=== PATIENT | female | born 1965 | race Caucasian/White ===

== ENCOUNTER 2019-05-31 08:00 | Inpatient (IN) | payer BC ==
--- NOTE | 2019-05-31 07:59 | HP ---
Admitting History and Physical - Admission Chief Complaint: left knee osteoarthritis x years History of Present Illness: 53 year old female presents in regard to their left knee. Long-standing history of left knee osteoarthritis. Patient complains of pain, limited range of motion , difficulty ambulating, and difficulty with activities of daily living. Patient has failed conservative treatment options including PO medications, activity modification, injections, and exercise programs. At this point, patient like to proceed with surgical intervention, left total knee arthroplasty MAKOplasty. History Source: Patient - Past Medical History ...LMP: 02/28/18 ...: No Heme/Onc: Yes: Anemia Endocrine: Yes: Hypothyroidism - Past Surgical History Additional Past Surgical History: See written history & physical. - Smoking History Smoking history: Current every day smoker Have you smoked in the past 12 months: No Aproximately how many cigarettes per day: 3 - Alcohol/Substance Use Hx Alcohol Use: Yes (FEW TIMES PER WEEK) Home Medications - Allergies Allergies/Adverse Reactions: Allergies Allergy/AdvReac Type Severity Reaction Status Date / Time No Known Allergies Allergy Verified 05/08/19 10:14 - Home Medications Home Medications: Ambulatory Orders Cholecalciferol (Vitamin D3) [Vitamin D3] 2,000 unit PO DAILY 05/08/19 Ferrous Sulfate 325 mg PO DAILY 05/08/19 Levothyroxine [Synthroid -] 25 mcg PO DAILY 05/08/19 Review of Systems - Review of Systems Musculoskeletal: reports: Crepitus (left knee), Decreased ROM (left knee), Joint Pain (left knee), Joint Swelling (left knee) Physical Examination Constitutional: Yes: Well Nourished Eyes: Yes: Conjunctiva Clear HENT: Yes: Atraumatic Neck: Yes: Supple Cardiovascular: Yes: Regular Rate and Rhythm Respiratory: Yes: Regular Gastrointestinal: Yes: Soft ...Rectal Exam: Yes: Deferred Musculoskeletal: Yes: Joint Stiffness (left knee), Joint Swelling (left knee) Assessment/Plan 53 year old female presents in regard to their left knee. Long-standing history of left knee osteoarthritis. Patient complains of pain, limited range of motion , difficulty ambulating, and difficulty with activities of daily living. Patient has failed conservative treatment options including PO medications, activity modification, injections, and exercise programs. At this point, patient like to proceed with surgical intervention, left total knee arthroplasty MAKOplasty. Pros, cons, risks, benefits, and alternatives of a left total knee arthroplasty MAKOplasty were discussed with the patient at length. Patient confirms their understanding and consents to proceed with a left total knee arthroplasty MAKOplasty.
[~2019-05-31 08:00] MED LIST: CEFAZOLIN 3 GM in DEXTROSE 5%-WATER - 100 ML IVPB ONE; CELECOXIB 200 MG CAPSULE PO ONE; PANTOPRAZOLE 40 MG TABLET PO ONE; TRANEXAMIC ACID 1000 MG/10 ML VIAL IVPUSH ONE; oxyCODONE HCL 10 MG SUSTAINED ACTING TABLET PO ONE
[2019-05-31] MEDS ORDERED: BUPIVACAINE HCL/PF 0.5% (5MG/ML) 10 ML VIAL ONE (10:01)
[2019-05-31] MEDS ORDERED: SODIUM CHLORIDE 0.9% P/F 10 ML VIAL IJ ONE (10:02)
[2019-05-31] MEDS ORDERED: BUPIVACAINE LIPOSOME/PF (EXPAREL) 266 MG/20 ML VIAL ONE (10:02)
[2019-05-31] MEDS ORDERED: MIDAZOLAM HCL 2 MG/2 ML SINGLE DOSE VIAL ONE (10:02)
[2019-05-31] MEDS ORDERED: ceFAZolin SODIUM 1 GM VIAL ONE (10:03)
[2019-05-31] MEDS ORDERED: PROPOFOL 20 ML ONE ×7 (10:04→13:54)
[2019-05-31] MEDS ORDERED: oxyCODONE HCL 5 MG TABLET PO PRN (10:15)
[2019-05-31] MEDS ORDERED: LACTATED RINGERS SOLUTION 1,000 ML IV SCH ×2 (10:15→15:15)
[2019-05-31] MEDS ORDERED: ONDANSETRON 4 MG/2 ML VIAL IVPUSH PRN ×2 (10:15→15:10)
[2019-05-31 10:16] VITALS: BMI 38.0
[2019-05-31] MEDS ORDERED: DEXAMETHASONE SOD PHOSPHATE 4 MG/1 ML VIAL ONE (11:58)
[2019-05-31] MEDS ORDERED: KETOROLAC TROMETHAMINE 30 MG/1 ML VIAL ONE (11:58)
[2019-05-31] MEDS ORDERED: ONDANSETRON 4 MG/2 ML VIAL ONE (11:58)
[2019-05-31] MEDS ORDERED: VANCOMYCIN 1,000 MG VIAL (RESTRICTED TO ID ONLY) IVPB ONE (14:15)
[2019-05-31] MEDS ORDERED: TRANEXAMIC ACID 1000 MG/10 ML VIAL IVPUSH ONE (14:30)
[2019-05-31] MEDS ORDERED: ACETAMINOPHEN 1000 MG/100 ML VIAL (NON FORMULARY) IVPB ONE (15:07)
[2019-05-31] MEDS: traMADol HCL 50 MG TABLET PO SCH ×2 (15:10→20:44)
[2019-05-31] MEDS ORDERED: MAG HYDROX/AL HYDROX/SIMETH 30 ML UNIT-DOSE CUP PO PRN (15:10)
[2019-05-31] MEDS ORDERED: MAGNESIUM HYDROX 2400MG/30ML ORAL SUSPENSION 30 ML CUP PO PRN (15:10)
[2019-05-31] MEDS ORDERED: CEFAZOLIN 3 GM in DEXTROSE 5%-WATER - 100 ML IVPB SCH (15:15)
--- NOTE | 2019-05-31 15:15 | OP ---
Operative Note - Note: Operative Date: 05/31/19 Operation: Left PERICO TKA Post-Operative Diagnosis: Same as Pre-op Surgeon: Amor Lawson Core Winder Machine Operator: Josefa Gipson Anesthesia: Spinal Estimated Blood Loss (mls): 200
--- NOTE | 2019-05-31 16:43 | SPEC ---
DATE OF OPERATION: 05/31/2019 PREOPERATIVE DIAGNOSIS: Left knee osteoarthritis. POSTOPERATIVE DIAGNOSIS: Left knee osteoarthritis. PROCEDURE PERFORMED: Left total knee replacement with MAKOplasty robotic navigation. SURGEON: Lurdes Ayers M.D. CUSHION SEWER: MARCEL Hayden ANESTHESIA: Spinal plus sedation. ESTIMATED BLOOD LOSS: 200 mL. COMPLICATIONS: None. DISPOSITION: The patient was transferred to the PACU in stable condition. IMPLANTS USED: Atalissa Triathlon size 4 femoral component, size 4 tibial component, 35-mm patellar component, 11-mm total stabilized polyethylene component. INDICATIONS: This is a 53-year-old female who presented to the office complaining of severe left knee pain. She was seen and examined by Dr. Ayers and diagnosed with severe left knee osteoarthritis. The patient was initially treated nonoperatively with injections, medications and physical therapy, but continued to have severe pain and ambulatory dysfunction. She was then indicated for a left total knee replacement. The risks, benefits and alternatives to the procedure were explained to the patient in great detail, and she elected to proceed with the surgery. DESCRIPTION OF PROCEDURE: On the day of surgery, the patient was taken to the operating room and placed on the OR table. Spinal anesthesia was administered by the anesthesiologist. The patient was then positioned supine on the table and all bony prominences were padded. The knee was then prepped and draped in the usual sterile fashion and intravenous antibiotics were given for infection prophylaxis. A surgical time-out was then performed with the team, and the patients identity, procedure, side, availability of implants, and the administration of antibiotics was confirmed. With the knee flexed, a midline incision was made and carried down through the subcutaneous fat to the underlying retinaculum. A medial parapatellar arthrotomy was performed. This was followed by a subperiosteal dissection of the tissue off the proximal, medial tibia. A portion of fat pad was removed from under the patellar tendon, and a small portion of fat was excised off the distal supracondylar femur. Electrocautery and an Aquamantys bipolar sealing device were used to achieve hemostasis. The knee was then flexed further and the anterior horn of the lateral meniscus was released from the midline. Next, the anterior and posterior cruciate ligaments were transected. Grade 4 changes were noted diffusely throughout the knee. Femoral and tibial checkpoints were then placed in the appropriate location using a mallet. Two parallel bicortical self-drilling pins were placed in the tibial diaphysis after making stab incisions and bluntly dissecting down to bone. Two pins were then placed in the distal supracondylar femur. The Melior Discovery navigation arrays were then attached to both the femoral and tibial pins and the lower extremity was then registered to the robotic navigation device using various joint movements, as well as inputting several dozen reference points. The knee was then taken through a full range of motion with a corrective force applied. Alignment in varus/valgus as well as flexion/extension and soft tissue balance was measured in various positions. The navigation device showed a numerical and graphic representation of the soft tissue balance. The components were repositioned virtually using the software until optimal soft tissue balance was achieved on screen. Once this was accomplished, the final plan was saved and sent to the robot. Self-retaining retractors were then placed at the joint line for exposure and protection of the collateral ligaments. The robot was brought into the sterile field and registered with the navigation device. The robotic arm with attached oscillating saw blade was then used to perform femoral and tibial bone cuts as per the saved software plan. The femoral box cut was made using the appropriately sized manual cutting guide. The knee was then irrigated. Trial components were placed and the knee was taken through a full range of motion to assess soft tissue balance and alignment. The range of motion was found to be excellent and the soft tissue balance was optimal and according to plan. The knee was then put into extension and the patella everted. The synovium around the patella was circumscribed with electrocautery. A caliper was used to measure the patellar thickness and a saw was then used to resect the patella at the chondro-osseous junction. The cut surface was then sized and drilled for the appropriate patellar button, with care taken to medialize it. A trial patella was then placed and the knee was again taken through a full range of motion. The knee was found to have both good balance and good patellar tracking. All of the components were removed except the tibial base plate. The appropriate instrumentation was used to drill and punch the proximal tibia for the keel of the final component. All bony surfaces were then cleaned with pulsatile lavage and dried. Bone cement was then prepared on the back table, and final components were cemented in place in the usual fashion. Extruded cement was removed. The polyethylene trial was placed, the knee was put into extension, and axial pressure was applied for compression while the cement hardened. The patellar button was similarly cemented into place. Once the cement had hardened, the knee was taken through a full range of motion to assess stability, balance, and patellar tracking. This was found to be optimal and the trial polyethylene was exchanged for the appropriately sized real implant. The wound was then thoroughly irrigated with normal saline. A 3-minute dilute Betadine lavage was performed. The knee was again irrigated using a pulsatile lavage device. A periarticular injection was used to locally infiltrate the capsular tissues surrounding the implant and prosthesis. Then No. 1 Polysorb and 0 VLoc 180 barbed sutures were used to close the arthrotomy. Then No. 1 Polysorb and 2-0 VLoc 90 sutures were used in the subcutaneous tissues. Then 4-0 undyed Vicryl and Dermabond skin adhesive was used to close the stab incisions made for the navigation pins. The skin was closed using both 3-0 VLoc 90 suture in a running subcuticular fashion and Dermabond skin adhesive. Once this was completed a sterile Aquacel dressing and compressive Rico-wrap was applied. The patient was then awakened and taken to the PACU in stable condition. LURDES AYERS M.D. [id number]
[2019-05-31] MEDS ORDERED: DEXAMETHASONE SOD PHOSPHATE 10 MG/1 ML VIAL IVPB ONE (20:00)
[2019-05-31] MEDS: ACETAMINOPHEN 325 MG TABLET (FP) PO SCH (20:43)
[2019-05-31] MEDS: KETOROLAC TROMETHAMINE 30 MG/1 ML VIAL IVPUSH SCH (20:45)
[2019-05-31] MEDS: CEFAZOLIN 3 GM in DEXTROSE 5%-WATER - 100 ML IVPB SCH (22:13)
[2019-05-31] MEDS: CELECOXIB 200 MG CAPSULE PO SCH (22:14)
[2019-05-31] MEDS: oxyCODONE HCL 10 MG SUSTAINED ACTING TABLET PO SCH (22:15)
[2019-05-31] MEDS: ASCORBIC ACID 500 MG TABLET (FP) PO SCH (22:15)
[2019-05-31] MEDS: GABAPENTIN 300 MG CAPSULE PO SCH (22:15)
[2019-05-31] MEDS: SENNOSIDES/DOCUSATE COMBO (SENNA PLUS) TABLET (UD) PO SCH (22:15)
[2019-06-01] MEDS: KETOROLAC TROMETHAMINE 30 MG/1 ML VIAL IVPUSH SCH ×4 (02:20→20:13)
[2019-06-01] MEDS: ACETAMINOPHEN 325 MG TABLET (FP) PO SCH ×4 (02:21→20:13)
[2019-06-01] MEDS: traMADol HCL 50 MG TABLET PO SCH ×4 (02:22→20:22)
[2019-06-01] MEDS: CEFAZOLIN 3 GM in DEXTROSE 5%-WATER - 100 ML IVPB SCH (05:22)
[2019-06-01] MEDS: oxyCODONE HCL 5 MG TABLET PO PRN ×2 (06:00→13:45)
[2019-06-01] MEDS: LEVOTHYROXINE NA 25 MCG TABLET (FP) PO SCH (06:00)
[2019-06-01 07:31] LABS: HEMATOCRIT 38.2 % (32.4-45.2); HEMOGLOBIN 12.5 GM/dl (10.7-15.3); MCH 29.8 pg (25.7-33.7); MCHC 32.7 g/dl (32.0-36.0); MEAN CELL VOLUME 91.1 fl (80-96); MEAN PLT VOLUME 9.2 fl (7.5-11.1); PLATELET COUNT 268 K/MM3 (134-434); RBC 4.19 M/mm3 (3.60-5.2); RDW 12.7 % (11.6-15.6); WHITE BLOOD COUNT 13.2 K/mm3 (4.0-10.8)
[2019-06-01 07:49] LABS: CALCIUM 8.7 mg/dl (8.5-10); CREATININE 0.8 mg/dl (0.55-1.3); POTASSIUM 4.9 mmol/L (3.5-5.1)
[2019-06-01] MEDS: ASPIRIN 325 MG TABLET PO SCH (08:59)
[2019-06-01] MEDS: CELECOXIB 200 MG CAPSULE PO SCH ×2 (08:59→21:35)
[2019-06-01] MEDS: MULTIVITAMINS (DAILY MVI) TABLET (FP) PO SCH (09:00)
[2019-06-01] MEDS: GABAPENTIN 300 MG CAPSULE PO SCH ×2 (09:00→21:35)
[2019-06-01] MEDS: SENNOSIDES/DOCUSATE COMBO (SENNA PLUS) TABLET (UD) PO SCH ×2 (09:00→21:36)
[2019-06-01] MEDS: ASCORBIC ACID 500 MG TABLET (FP) PO SCH ×2 (09:00→21:37)
[2019-06-01] MEDS: oxyCODONE HCL 10 MG SUSTAINED ACTING TABLET PO SCH ×2 (09:01→21:36)
[2019-06-01] MEDS: PANTOPRAZOLE 40 MG TABLET PO SCH (09:02)
--- NOTE | 2019-06-01 10:02 | PN ---
Progress Note, Physician Chief Complaint: s/p left knee replacement under spinal anesthesia postop day one History of Present Illness: peripheral nerve block for post op pain control. - Current Medication List Current Medications: Active Medications Acetaminophen (Tylenol -) 650 mg PO Q6H [facility] Stop: 06/03/19 15:48 Last Admin: 06/01/19 09:01 Dose: 650 mg Al Hydroxide/Mg Hydroxide (Mylanta Oral Suspension -) 30 ml PO Q4H PRN PRN Reason: DYSPEPSIA Ascorbic Acid (Vitamin C -) 500 mg PO BID [facility] Last Admin: 06/01/19 09:00 Dose: 500 mg Aspirin (Asa -) 325 mg PO DAILY@0800 [facility] Last Admin: 06/01/19 08:59 Dose: 325 mg Celecoxib (Celebrex -) 200 mg PO BID [facility] Last Admin: 06/01/19 08:59 Dose: 200 mg Gabapentin (Neurontin -) 300 mg PO BID [facility] Stop: 06/03/19 21:59 Last Admin: 06/01/19 09:00 Dose: 300 mg Ketorolac Tromethamine (Toradol Injection -) 30 mg IVPUSH Q6H [facility] Stop: 06/02/19 03:01 Last Admin: 06/01/19 08:59 Dose: 30 mg Levothyroxine Sodium (Synthroid -) 25 mcg PO DAILY@0700 [facility] Last Admin: 06/01/19 06:00 Dose: 25 mcg Magnesium Hydroxide (Milk Of Magnesia -) 30 ml PO PRN PRN PRN Reason: CONSTIPATION Multivitamins/Minerals/Vitamin C (Tab-A-Vit -) 1 tab PO DAILY [facility] Last Admin: 06/01/19 09:00 Dose: 1 tab Ondansetron HCl (Zofran Injection) 4 mg IVPUSH Q6H PRN PRN Reason: NAUSEA Oxycodone HCl (Roxicodone -) 5 mg PO Q3H PRN PRN Reason: PAIN LEVEL 1-5 Last Admin: 05/31/19 17:45 Dose: 5 mg Oxycodone HCl (Roxicodone -) 10 mg PO Q3H PRN PRN Reason: PAIN LEVEL 6-10 Last Admin: 06/01/19 06:00 Dose: 10 mg Oxycodone HCl (Oxycontin -) 10 mg PO BID [facility] Stop: 06/03/19 10:16 Last Admin: 06/01/19 09:01 Dose: 10 mg Pantoprazole Sodium (Protonix -) 40 mg PO DAILY [facility] Last Admin: 06/01/19 09:02 Dose: 40 mg Senna/Docusate Sodium (Pericolace -) 2 tablet PO BID [facility] Last Admin: 06/01/19 09:00 Dose: 2 tablet Tramadol HCl (Ultram -) 50 mg PO Q6H [facility] Last Admin: 06/01/19 09:00 Dose: 50 mg - Objective Vital Signs: Vital Signs Temperature 97.4 F L 06/01/19 08:00 Pulse Rate 84 06/01/19 08:00 Respiratory Rate 16 06/01/19 08:22 Blood Pressure 131/72 06/01/19 08:00 O2 Sat by Pulse Oximetry (%) 100 06/01/19 09:31 Constitutional: Yes: Well Nourished Cardiovascular: Yes: WNL Respiratory: Yes: WNL Gastrointestinal: Yes: WNL Labs: CBC, BMP 06/01/19 06:57 06/01/19 06:57 Assessment/Plan No adverse anesthetic complications, dept of anesthesiology will sign off care at this time
[2019-06-02] MEDS: KETOROLAC TROMETHAMINE 30 MG/1 ML VIAL IVPUSH SCH (03:06)
[2019-06-02] MEDS: traMADol HCL 50 MG TABLET PO SCH ×2 (03:07→08:15)
[2019-06-02] MEDS: ACETAMINOPHEN 325 MG TABLET (FP) PO SCH ×2 (03:07→08:07)
[2019-06-02 06:30] VITALS: BP 109/52; PULSE 68; TEMP 97.4
[2019-06-02] MEDS: LEVOTHYROXINE NA 25 MCG TABLET (FP) PO SCH (06:49)
--- NOTE | 2019-06-02 07:43 | DS ---
Physical Examination Vital Signs: Vital Signs Temperature 97.4 F L 06/02/19 06:00 Pulse Rate 68 06/02/19 06:00 Respiratory Rate 18 06/02/19 06:00 Blood Pressure 109/52 L 06/02/19 06:00 O2 Sat by Pulse Oximetry (%) 98 06/02/19 06:00 Labs: CBC, BMP 06/01/19 06:57 Discharge Summary Problems reviewed: Yes Reason For Visit: LEFT KNEE OSTEOARTHRITIS Current Active Problems Osteoarthritis of left knee (Acute) Procedures: Principal: left PERICO TKA Hospital Course: Admitted for elective surgery. Procedure performed without complications. Pt received postoperative antibiotic prophylaxis and DVT ppx. Ambulated with physical therapy. Stable for discharge home with outpatient followup. Condition: Stable - Instructions Diet, Activity, Other Instructions: Dr. Lawson - Knee Replacement Instructions Keep the Aquacel dressing on until removed by Dr. Lawson in the office - it is antibacterial and waterproof and you can shower with it on. Call the office for a follow-up appointment with Dr. Lawson in 2 weeks. [phone] Take one Aspirin 325mg daily for 6 weeks to prevent blood clots in your legs. Take one Pantoprazole 40mg daily for 6 weeks to protect against heartburn and ulcers. Take Cephalexin (antibiotic) 3x/day for 10 days to help prevent skin infection. Take Celebrex 200mg twice daily for 30 days to reduce swelling and inflammation. Take a multivitamin, stool softener, and extra Vitamin C supplement daily. For pain: *Mild pain (1-3/10): Take 1 Tramadol tablet every 4 hours as needed. Moderate pain (4-6/10): Take 1 Tramadol tablet and 1 Percocet tablet every 4 hours as needed. Severe pain (7-10/10): Take 1 Tramadol tablet and 2 Percocet tablets every 4 hours as needed. Activity: You can put as much weight on the operative leg as you want. Right after you get home, there will be a physical therapist coming to your house to help you walk around and bend/straighten your knee. After your follow-up appointment, you will be sent for more intensive outpatient physical therapy which will include machines and equipment that the home therapist cannot bring to your house. Always use a walker or cane for balance and to prevent falls. Expect to see swelling/bruising from the operative site all the way down to your toes. Wear the compression stocking on the operative side during the day to minimize how much swelling there is in your foot/ankle. Don't wear the stocking at night. You don't have to wear a stocking on the other side. Disposition: [facility]/HOME HEALTH CARE - Home Medications Comprehensive Discharge Medication List: Ambulatory Orders Cholecalciferol (Vitamin D3) [Vitamin D3] 2,000 unit PO DAILY 05/08/19 Ferrous Sulfate 325 mg PO DAILY 05/08/19 Levothyroxine [Synthroid -] 25 mcg PO DAILY 05/08/19 Ascorbic Acid [Vitamin C -] 500 mg PO BID tablet 06/02/19 Aspirin [ASA -] 325 mg PO DAILY@0800 tablet 06/02/19 Celecoxib [CeleBREX -] 200 mg PO BID #60 capsule 06/02/19 Cephalexin Monohydrate [Keflex -] 500 mg PO TID #30 capsule 06/02/19 Multivitamins [Multivit ([facility] Formulary)] 1 tab PO DAILY tab 06/02/19 Oxycodone HCl/Acetaminophen [Percocet 5-325 mg Tablet] 1 - 2 tab PO Q4H PRN #60 tablet MDD 10 06/02/19 Pantoprazole Sodium [Protonix -] 40 mg PO DAILY #40 tablet.ec 06/02/19 Sennosides/Docusate Sodium [Pericolace -] 2 tablet PO BID tablet 06/02/19 traMADol HCL [Ultram -] 50 mg PO Q4H PRN #42 tablet MDD 6 06/02/19
[2019-06-02] MEDS: ASPIRIN 325 MG TABLET PO SCH (07:50)
[2019-06-02 08:22] LABS: HEMATOCRIT 33.3 % (32.4-45.2); HEMOGLOBIN 11.2 GM/dl (10.7-15.3); MCH 30.7 pg (25.7-33.7); MCHC 33.6 g/dl (32.0-36.0); MEAN CELL VOLUME 91.4 fl (80-96); PLATELET COUNT 225 K/MM3 (134-434); RBC 3.64 M/mm3 (3.60-5.2); RDW 13.1 % (11.6-15.6); WHITE BLOOD COUNT 9.4 K/mm3 (4.0-10.8)
[2019-06-02] MEDS: PANTOPRAZOLE 40 MG TABLET PO SCH (09:05)
[2019-06-02] MEDS: CELECOXIB 200 MG CAPSULE PO SCH (09:05)
[2019-06-02] MEDS: GABAPENTIN 300 MG CAPSULE PO SCH (09:05)
[2019-06-02] MEDS: MULTIVITAMINS (DAILY MVI) TABLET (FP) PO SCH (09:05)
[2019-06-02] MEDS: ASCORBIC ACID 500 MG TABLET (FP) PO SCH (09:05)
[2019-06-02] MEDS: oxyCODONE HCL 10 MG SUSTAINED ACTING TABLET PO SCH (09:06)
[2019-06-02] MEDS: SENNOSIDES/DOCUSATE COMBO (SENNA PLUS) TABLET (UD) PO SCH (09:06)
--- NOTE | 2019-06-08 13:41 | PATH ---
Surgical Pathology Report Patient Name: LALI WHITE Med. Rec. #: [id number] /Age/Gender: 1965 (Age: 53) / F Account: [id number] Location: [facility] MED-SURG Taken: 05/31/2019 Received: 05/31/2019 Reported: 06/08/2019 Physicians: Amor Lawson M.D. Specimen(s) Received LEFT KNEE BONES Clinical History Left knee osteoarthritis Final Diagnosis KNEE BONES, LEFT, TOTAL KNEE REPLACEMENT: DEGENERATIVE JOINT DISEASE. Electronically Signed Savanah Sarmiento M.D. Gross Description Received in formalin labeled "left knee bones," is a 12.5 x 1.0 x 2.0 cm aggregate of multiple portions of bone and soft tissue. The tibial plateau measures 7.2 x 5.6 x 1.4 cm. There is a 3.7 cm in greatest dimension area of eburnation present. The remaining articular surfaces are hammonds-brown and diffusely granular. The underlying trabecular bone is yellow and hard. Frame Builder sections are submitted in one cassette, following decalcification. /06/04/2019 [facility]06/04/2019
== END 2019-06-02 12:15 | disposition home health service (06) | DRG 470 ==
LOC: UNDOADMIN 09:42 → FM/S 09:42
PROVIDERS: ADMIT Student in an Organized Health Care Education/Training Program; ATTEND Student in an Organized Health Care Education/Training Program
PROC: 8E0Y0CZ Robotic Assisted Procedure of Lower Extremity, Open Approach (ICD-10-PCS; 2019-05-31)
PROC: 0SRD0J9 Replacement of Left Knee Joint with Synthetic Substitute, Cemented, Open Approach (ICD-10-PCS; principal; 2019-05-31 12:01)
DX: M17.12 Unilateral primary osteoarthritis, left knee (principal); E03.9 Hypothyroidism, unspecified; F17.210 Nicotine dependence, cigarettes, uncomplicated; D64.9 Anemia, unspecified
CPT/HCPCS: 36415; 73560-TC-LT-FY; 80048; 85027; 88304-TC; 88311-TC; 94760; 97116-GP; 97163-GP; J0131; J1100